=== PATIENT | male | born 1955 | race Caucasian/White ===

== ENCOUNTER → 2016-12-22 | Outpatient (CLI) | payer OTHER ==
[~2016-12-22] VITALS: Ht 177.8 cm; Wt 82.2 kg
[~2016-12-22] MED LIST: ALBUTEROL2.5 MG/0.5 INH; AMLODIPINE BESYL5 MG PO; ASPIRIN325 PO; BAYER CHEWABLE81 MG PO; DIAZEPAM 10 MG10 M1 PO; DILAUDID 4 MG TA4 M1 PO; DIOVAN40 MG PO; DIPHENHIST50 MG PO; EFFIENT10 MG PO; ESCITALOPRAM OX20 MG PO; FENTANYL PA50 MCG/HR TRANSDERM; HYDROMORPHONE HC8 MG PO; IMDUR 30 MG TAB30 M1 PO; ISOSORBIDE DINI30 MG PO; LEVOTHYROXIN0.112 M1 PO; LEXAPRO20 MG PO; LIPITOR10 MG PO; LIPITOR80 MG PO; LOPRESSOR25 PO; LOSARTAN POTAS100 MG PO; LOSARTAN POTASS25 MG PO; LYRICA100 MG PO; LYRICA200 MG PO; METHADONE HCL 110 M1 PO; METHADONE HCL5 MG PO; METHADOSE5 MG PO; NITROSTAT0.4 MG SL; NITROSTAT0.4 MG SUBLING; NORVASC 5 MG TAB5 MG PO; NORVASC5 MG PO; PRILOSEC 20 MG20 MG PO; SYNTHROID100 MCG PO; TOPROL XL25 MG PO; VYTORIN 10-201 EACH PO; dilaudid PO
--- NOTE | ~2016-12-22 | HPC ---
[facility] [address] [place] [address] PAIN MANAGEMENT CONSULTATION Name: VANIANESHA Marguerite Room #: REG CL Yanelis.#: [id number] Admission: 12/22/16 Attend Phys: Keshav Baker MD Discharge: Date of : 51 Report #: [id number] THIS REPORT FOR: //name// CC: Vincent Baker DATE OF SERVICE: 12/22/2016 Followup visit for chronic recurrent lumbar radiculopathy. The patient returns to pain clinic today for a transforaminal epidural injection. He is a responder to this therapy. He has had numerous injections over the years, nearly always providing good relief. Pain today is once again on the left side radiating down into the left buttock, hip and lower leg. He describes it as a burning, sharp sensation, worse with standing 6/10. He gets relief with these epidural injections nearly always and the duration of response has been months. PAST MEDICAL HISTORY: Detailed on the records. It is quite complex with a history of radical neck dissection, radiation for cancer, cardiac issues with cardiac arrest and multiple stents, hypertension, coronary artery disease, left knee arthroplasty, COPD with longstanding history of smoking, ____ survivor. MEDICATIONS: Methadone 10 mg 3 times daily has worked beautifully for his pain. There are no complications or side effects now and has been on the medication for over 10 years. Diphenhydramine 50 mg capsule nightly, albuterol, aspirin, amlodipine, losartan, ____, Effient, discontinued on 12/13/2016 in anticipation of injection; Lexapro, metoprolol, levothyroxine, Lyrica and nitroglycerine. PHYSICAL EXAMINATION: GENERAL: Pleasant, alert and oriented, moves easily from sitting to standing position, walks with antalgic feature. VITAL SIGNS: Blood pressure 153/76, heart rate 58. NEUROLOGIC: Straight leg raising positive. Sensation intact. IMPRESSION: Chronic low back pain on the left with radiculopathy. Pain follows in L3-L4 distribution. PROCEDURE: Left L3-L4 transforaminal epidural injection under fluoroscopic guidance. The patient was taken to fluoroscopic suite, placed prone, skin prepped with ChloraPrep, skin anesthetized over the L3-L4 neural foramen. Triplanar fluoroscopic views were used to advance the needle into the epidural space. A 1 mL of Omnipaque demonstrated an excellent epidural spread followed by 3 mL of 0.5% lidocaine mixed with 80 mg of triamcinolone. He tolerated the procedure [address] [address] PAIN MANAGEMENT CONSULTATION Name: NESHA CARO Room #: REG [facility].#: [id number] Admission: 12/22/16 Attend Phys: Keshav Baker MD Discharge: Date of : 51 Report #: [id number] well and was observed for 45 minutes and discharged. Followup visit planned as needed. By: [id number] MD espinoza Vela
[2016-12-22 12:56] VITALS: BP 153/76
== END | disposition home or self-care (01) ==
LOC: PAIN 07:08
DX: M54.16 Radiculopathy, lumbar region (principal); Z85.9 Personal history of malignant neoplasm, unspecified; I10 Essential (primary) hypertension; I25.10 Atherosclerotic heart disease of native coronary artery without angina pectoris; J44.9 Chronic obstructive pulmonary disease, unspecified; Z87.891 Personal history of nicotine dependence

== ENCOUNTER → 2017-01-05 | Outpatient (CLI) | payer OTHER ==
[~2017-01-05] VITALS: Ht 177.8 cm; Wt 81.9 kg
--- NOTE | ~2017-01-05 | HPC ---
[facility] [address]ie [address] [place] [address] PAIN MANAGEMENT CONSULTATION Name: NESHA CARO Marguerite Room #: REG [facility] [place]#: [id number] Admission: 01/05/17 Attend Phys: Keshav Baker MD Discharge: Date of : 51 Report #: [id number] THIS REPORT FOR: //name// CC: SERGE Baker DATE OF SERVICE: 01/05/2017 Followup visit for lumbar radiculopathy. The patient returns to pain clinic today for a second epidural injection. His first one of transforaminal on the left was helpful for about 4 days and the pain came back with a . He says it feels just like it does when I inject him along that transforaminal nerve root. He was really good at first, but now the pain seems to have increased to the point where he is unable to get pain relief even with an additional dose of methadone. He is here today hopeful that we can provide relief with a second injection. I have decided that we will not try and go into the neural foramina again this time and we will use midline approach at L3-L4. Reviewed the x-rays again, MRI and I feel that will be the best place to initiate the injection. PHYSICAL EXAMINATION: Walking with antalgic features. Blood pressure is 133/70, heart rate 60, respirations 16. BMI is 25.9. He has positive straight leg raising on the left following the L3 L4 distribution. IMPRESSION: Lumbar radiculopathy. PROCEDURE: Lumbar epidural injection at L3-L4 under fluoroscopic guidance. PROCEDURE NOTE: He was taken to fluoroscopic suite, placed prone, skin prepped with ChloraPrep, skin anesthetized over the L3-L4 midline lamina. A 20-gauge Tuohy epidural needle advanced in the epidural space in first attempt with loss of resistance. No blood, no CSF aspirated. 1 mL of Omnipaque was injected with spread of dye observed into the epidural space. This was then followed by 3 mL of 0.5% lidocaine mixed with 80 mg of triamcinolone. He tolerated the procedure well and was observed for 45 minutes and discharged. Followup visit planned in the pain clinic in 2-3 months. I renewed medication at his last visit, he does not need medication at this time. We are hopeful to see some improvement with this injection, so that he can get back to baseline. By: [id number] Keshav Baker MD /nt
[2017-01-05 09:19] VITALS: BP 133/70
== END | disposition home or self-care (01) ==
LOC: PAIN 06:39
DX: M54.16 Radiculopathy, lumbar region (principal)

== ENCOUNTER → 2017-04-28 | Outpatient (CLI) | payer OTHER | LOC: CAT 08:47 | PROVIDERS: Otolaryngology Plastic Surgery within the Head & Neck | DX: J34.3 Hypertrophy of nasal turbinates (principal); J02.9 Acute pharyngitis, unspecified; J34.2 Deviated nasal septum; R09.82 Postnasal drip; R13.10 Dysphagia, unspecified; R09.89 Other specified symptoms and signs involving the circulatory and respiratory systems ==

== ENCOUNTER → 2017-06-05 | Outpatient (CLI) | payer OTHER ==
[~2017-06-05] VITALS: Ht 180.3 cm; Wt 85.7 kg
[~2017-06-05] MED LIST changes: +HYDROCODON-ACE1 EAC5 PO; +REPATHA SY140 MG/1 M SUBQ
--- NOTE | ~2017-06-05 | HPC ---
[facility] [address] [place] [address] PAIN MANAGEMENT CONSULTATION Name: NESHA CARO Marguerite Room #: REG CALLY Marquez#: [id number] Admission: 06/05/17 Attend Phys: Keshav Baker MD Discharge: Date of : 51 Report #: [id number] THIS REPORT FOR: //name// CC: Betito Baker DATE OF SERVICE: 06/05/2017 Follow up visit for lumbar radiculopathy. The patient is here today for an epidural injection. He has responded nicely to epidural injections in the past and pain is recurring. Number of issues with his back dating back to his teenage years when he rode yarelis. He has had multiple spinal surgeries as well as other surgeries for his heart and for squamous cell cancer of the throat and tonsils. Today, he reports that his pain in his back and his legs, is most bothersome at 5/10, mostly in the left buttock, it radiates down the left leg with occasional right-sided pain. Pain radiates into the left big toe following an L5-S1 distribution. He describes it as burning, sharp and stabbing, worse with walking and prolonged sitting. If he lays down, he gets relief and he also benefits from medications that are now provided to him by Dr. Betito Veronica. He has no breakthrough medication in the past, he used hydromorphone. I have agreed to provide him with a trial of hydrocodone for breakthrough medication I have noted on the prescription that he is in an agreement with Dr. Veronica. This dictation will serve as a notification to Dr. Veronica that as a pain practice, we suggested a trial of breakthrough medication. PHYSICAL EXAMINATION: He is outgoing as usual. His blood pressure is 132/75, heart rate 62, respirations 16, and BMI is 26.5. He ambulates with antalgic features. His spine is stiff with forward flexion and extension. He has minimal pain with leg extension on the right, but it is positive on the left following a radicular pattern through the lateral aspect of the leg and into the hip. IMPRESSION: Lumbar radiculopathy. RECOMMENDATIONS: Epidural steroid injection under fluoroscopic guidance. We reviewed his previous injections, and he has always gotten best relief when we inject him just below a large osteophytic spur noted at L2-L3. PROCEDURE: L3-L4 epidural steroid injection under fluoroscopic guidance. PROCEDURE NOTE: He was taken to the fluoroscopic suite, placed prone, skin prepped with ChloraPrep, skin anesthetized over the L3-L4 interspace. A [address] [address] PAIN MANAGEMENT CONSULTATION Name: NESHA CARO Room #: REG [facility] Al[place]#: [id number] Admission: 06/05/17 Attend Phys: Keshav Baker MD Discharge: Date of : 51 Report #: [id number] 20-gauge Tuohy epidural needle advanced in the epidural space with loss of resistance technique. There was no blood or CSF aspirated. 1 mL of Omnipaque was injected. Good spread of dye observed in the epidural space followed by 3 mL of 0.5% lidocaine mixed with 80 mg of triamcinolone. He tolerated the procedure well and was observed for 45 minutes and discharged. Followup visit planned in the pain clinic as needed. <ELECTRONICALLY SIGNED> By: Keshav Baker MD 06/07/17 1551 1651 1095 Keshav Baker MD /nt
[2017-06-05 10:49] VITALS: BP 132/75
== END | disposition home or self-care (01) ==
LOC: PAIN 05-22 08:20
DX: M54.16 Radiculopathy, lumbar region (principal); F17.200 Nicotine dependence, unspecified, uncomplicated

== ENCOUNTER → 2017-09-18 | Outpatient (CLI) | payer OTHER ==
[~2017-09-18] VITALS: Ht 180.3 cm; Wt 84.1 kg
--- NOTE | ~2017-09-18 | HPC ---
[facility] [address] [place] [address] PAIN MANAGEMENT CONSULTATION Name: NESHA CARO Room #: REG CALLY [facility].#: [id number] Admission: 09/18/17 Attend Phys: Keshav Baker MD Discharge: Date of : 51 Report #: [id number] THIS REPORT FOR: //name// CC: Betito Baker DATE OF SERVICE: 09/18/2017 Followup visit for lumbar radiculopathy. The patient returns today for an epidural injection, has done well with these injections. He has an upcoming trip planned to [place] and would like to get an injection before he leaves. He scores his daily pain as a 6/10, worse with standing and walking. Pain is mostly in his right buttock and radiates down into the right leg. He has responded very nicely to previous injections performed to the right of midline. All medications are provided to him under terms of an agreement signed and administered by Dr. Veronica. PQRS assessment shows that he has no history currently of osteoarthritis other than pain in the right hip. This was evaluated later in the visit. An x-ray was ordered. His BMI is 25.9. His O2 sat is 97, blood pressure 132/82, heart rate 62. Pain intensity is a 6/10 today in the right leg. He is not on a blood thinner, does have a history of hypertension and followed by Dr. Veronica for opioid issues. PHYSICAL EXAMINATION: Pleasant, alert and oriented, walks with antalgic features. He has pain in his right hip. Locally tender in the gluteus muscles. He also has pain in the groin with external rotation of the hip. Internal rotation is also performed with discomfort radiating into the anterolateral thigh. It does not go below the knee. There is some mild tenderness along the scar tissue in his groin from multiple vascular procedures. Sensation is normal below the knee. No focal weakness is noted. IMPRESSION: 1. Low back pain with radiculopathy on the right following an L5-S1 distribution. 2. History of squamous cell carcinoma. 3. Possible osteoarthritis of right hip, in the midst of workup. PROCEDURE: Lumbar epidural injection under fluoroscopic guidance. DESCRIPTION OF PROCEDURE: He was taken to fluoroscopic suite, placed prone, [address] [address] PAIN MANAGEMENT CONSULTATION Name: VANIANESHA Room #: REG CALLY Marquez#: [id number] Admission: 09/18/17 Attend Phys: Keshav Baker MD Discharge: Date of : 51 Report #: [id number] skin prepped with ChloraPrep. Skin was anesthetized over the L3-L4 interspace. A 20-gauge Tuohy epidural needle advanced in the epidural space to the right of midline. No blood or CSF was aspirated. 1 mL of Omnipaque was injected. Good spread of dye was observed followed by 3 mL of 0.5% lidocaine mixed with 80 mg of triamcinolone. He tolerated the procedure well and was observed for 45 minutes and discharged. Followup visit on an as needed basis. <ELECTRONICALLY SIGNED> By: Keshav Baker MD 09/20/17 1640 1430 1445 Keshav Baker MD /nt
[2017-09-18 10:16] VITALS: BP 132/82
== END ==
LOC: PAIN 07:36
DX: M54.16 Radiculopathy, lumbar region (principal); C44.92 Squamous cell carcinoma of skin, unspecified

== ENCOUNTER → 2018-05-21 | Outpatient (CLI) | payer OTHER ==
[~2018-05-21] VITALS: Ht 180.3 cm; Wt 83.3 kg
--- NOTE | ~2018-05-21 | HPC ---
[facility] [address] [place] [address] PAIN MANAGEMENT CONSULTATION Name: NESHA CARO Room #: REG [facility] [place]#: [id number] Admission: 05/21/18 Attend Phys: Keshav Baker MD Discharge: Date of : 51 Report #: [id number] THIS REPORT FOR: //name// CC: Vincent Baker DATE OF SERVICE: 05/21/2018 Followup visit for chronic low back pain, lumbar radiculopathy. The patient returns to pain clinic today reporting 8 months of pain relief following his last epidural injection. He said the shot was amazing, it was one of the best periods of relief he has had from a single injection. I reviewed his x-ray films from that injection. Similar disposition of medications in the past, although we have made note of the location intended to inject him once again at the level of L2-L3. This is just below large disk osteophyte complex easily seen on the plain film x-ray. Disk space is fairly well maintained, but it is obvious in the area of injury where he has had evidence of neural encroachment. Pain tends to be more to the right where the disk osteophyte complex is on the left. He remains on medication, hydrocodone 10/325. I provided this for him under terms of an agreement. He does not use it frequently, uses it primarily for breakthrough. Also, has taken methadone 10 mg 3 times a day. Medication is now provided by Dr. Veronica under terms of that written agreement. PQRS: Review shows that he has no history of current osteoarthritis other than some pain in his right hip. BMI is 25.4, blood pressure 136/80, heart rate is 68. He scores his pain as a 7 today. Most of his pain is in the right leg once again. Denies use of blood thinner. Dr. Veronica provides medications for him for chronic pain and for hypertension. IMPRESSION: 1. Chronic low back pain with radiculopathy on the right. Last injection was performed at L2-L3. Distribution of his pain tends to be a bit more at lower following an L5-S1 distribution. 2. Squamous cell carcinoma status post total neck dissection several years ago. No active disease. PROCEDURE: Lumbar epidural injection at L2-L3 under fluoroscopic guidance. DESCRIPTION OF PROCEDURE: He was taken to the fluoroscopic suite, placed prone, skin prepped with ChloraPrep. Skin anesthetized over L2-L3 interspace. A 20-gauge Tuohy epidural needle advanced first attempt into the epidural space with loss of resistance technique. There was no blood or CSF aspirated. 1 mL of Isovue injected. Good spread of dye observed in the epidural space followed [address] [address] PAIN MANAGEMENT CONSULTATION Name: NESHA CARO Room #: REG CALLY Marquez#: [id number] Admission: 05/21/18 Attend Phys: Keshav Baker MD Discharge: Date of : 51 Report #: [id number] by 2 mL of 0.5% lidocaine mixed with 80 mg of triamcinolone. He tolerated the procedure well and was observed for 45 minutes and discharged. Follow up as needed. By: [id number] Keshav Baker MD /nt
[2018-05-21 10:00] VITALS: BP 157/82
== END | disposition home or self-care (01) ==
LOC: PAIN 08:13
DX: M54.16 Radiculopathy, lumbar region (principal); G89.29 Other chronic pain; F17.210 Nicotine dependence, cigarettes, uncomplicated; Z98.890 Other specified postprocedural states; Z85.828 Personal history of other malignant neoplasm of skin; Z79.891 Long term (current) use of opiate analgesic; Z91.040 Latex allergy status; Z79.82 Long term (current) use of aspirin; Z79.899 Other long term (current) drug therapy; Z88.8 Allergy status to other drugs, medicaments and biological substances

== ENCOUNTER → 2019-10-30 | Outpatient (CLI) | payer OTHER | LOC: SJCVCIMAG 07:49 | DX: R94.31 Abnormal electrocardiogram [ECG] [EKG] (principal); I25.10 Atherosclerotic heart disease of native coronary artery without angina pectoris; I10 Essential (primary) hypertension; E78.00 Pure hypercholesterolemia, unspecified; I65.23 Occlusion and stenosis of bilateral carotid arteries; I73.9 Peripheral vascular disease, unspecified; I25.5 Ischemic cardiomyopathy; J44.9 Chronic obstructive pulmonary disease, unspecified; I25.2 Old myocardial infarction; F17.200 Nicotine dependence, unspecified, uncomplicated ==

== ENCOUNTER 2019-11-08 11:00 | Inpatient (IN) | payer OTHER ==
[~2019-11-08] VITALS: Ht 177.8 cm; Wt 72.1 kg
[2019-11-08 11:10] VITALS: BP 115/70
[2019-11-08 11:33] LABS: ABSOLUTE NEUTROPHILS 11.5 thou/uL (1.4-8.2); BASOPHILS 0.6 % (0.0-2.0); EOSINOPHILS 0.1 % (0.0-3.0); HEMATOCRIT 38.6 % (42.0-52.0); HEMOGLOBIN 12.7 gm/dL (14.0-18.0); MCH 28.1 pg (26.0-34.0); MCV 85.1 fL (80.0-100.0); MONOCYTES 7.1 % (1.0-8.0); PLATELET COUNT 278 thou/uL (150-400); POLYS 78.2 % (36.0-66.0); RBC 4.53 mil/uL (4.50-6.00); RDW 15.1 % (10.5-14.5); WBC 14.7 thou/uL (4.0-11.0)
[2019-11-08 11:43] LABS: CALCIUM 9.1 mg/dL (8.5-10.1)
--- NOTE | 2019-11-08 12:34 | NUR ---
PT ATTEMPTINT TO URINATE AT BEDSIDE AT THIS TIME
--- NOTE | 2019-11-08 13:36 | NUR ---
PT's phone number: [phone]
[2019-11-08] MEDS ORDERED: REPATHA SY140 MG/1 M SUBQ (13:44)
[2019-11-08 13:46] VITALS: BP 115/70
[2019-11-08] MEDS ORDERED: PLAVIX 75 MG TA75 MG PO (13:48)
--- NOTE | 2019-11-08 13:55 | NUR ---
Report called to Liliana Mota RN at this time.
[2019-11-08 14:09] VITALS: BP 88/41
--- NOTE | 2019-11-08 15:46 | NUR ---
PATIENT ADDMITTED FROM ER AT 1425 TO ROOM 356. PT ALERT XS 4 STATES NO PAIN NO RESP DISTRESS O2 SAT = 90 % RA. PT ADMITTED WITH FEVER COUGH SOA. R/O COVID19. LUNGS DIM HAS OCASS NON PROD COUGH BS'S XS4 STATES BM XS2 DAYS NORMAL FOR HIM. SKIN PINK WARM AND DRY NO OPEN AREAS HAS SCARS FROM RIDING BULLS WHEN YOUNGER ALSO HAS SURGERIES TO PLACE HEART STENTS, TELE MONITOR ATTACHED PRINTED SHEET AND PLACED IN CHART. IV FLUIDS AND IV ABTS INFUSING ORDERED. PT IS PLEASANT AND COOPERATIVE WITH CARE.
--- NOTE | 2019-11-08 18:11 | NUR ---
UA OBTAINED AND TAKEN TO LAB. PT CAME FROM ER WITH ORDER.
[2019-11-08 18:43] LABS: URINE BILIRUBIN NEGATIVE (Negative); URINE BLOOD NEGATIVE (Negative); URINE CLARITY CLEAR; URINE COLOR AMBER; URINE GLUCOSE-RANDOM* NEGATIVE (Negative); URINE KETONES NEGATIVE (Negative); URINE LEUKOCYTES-REFLEX NEGATIVE (Negative); URINE NITRITE-REFLEX NEGATIVE (Negative); URINE PROTEIN (DIPSTICK) NEGATIVE (Negative)
--- NOTE | 2019-11-08 18:43 | NUR ---
PT RESTING IN BED WATCHING TV NO PAIN OR RESP DISTRESS, NO COUGH. PT AMBULATES TO BATHROOM WITH NO ASSITIVE DEVICES AND STEADY GAIT, UA OBTAINED AND TAKEN TO LAB. PT PLEASANT AND COOPERATIVE WITH CARE.
[2019-11-08 20:50] VITALS: BP 121/69
[2019-11-09 04:36] VITALS: BP 115/58
--- NOTE | 2019-11-09 05:16 | NUR ---
ASSUMED CARE OF PATIENT AT 1900. PATIENT ON ENHANCED PRECAUTIONS WHILE AWAITING COVID TESTING RESULTS. AT HANDOFF IT WAS REPORTED THAT PATIENT WAS REQUESTING BENADRYL. AN ORDER FOR BENADRYL WAS RECEIVED TO BE ADMINISTERED AT HS. PATIENT STATES THAT HE TAKES BENADRYL AT HOME FOR POST NASAL DRIP AND NOT A SLEEP AID. THROUGHOUT NIGHT PATIENT HEART RATE WAS MONITORED IN THE UPPER 50s TO LOW 60s. PATIENT HAD RECEIVED DILAUDID AND METHADONE ORDERED AT HS FOR CHRONIC PAIN. PATIENT ON ROOM AIR. OXYGEN SATURATION MAINTAINED BETWEEN 90-92% WITH SLIGHT DESATURATION TO 88-89% WITH ACTIVITY OR TALKING.
[2019-11-09 06:14] LABS: ABSOLUTE NEUTROPHILS 5.9 thou/uL (1.4-8.2); BASOPHILS 0.5 % (0.0-2.0); EOSINOPHILS 1.4 % (0.0-3.0); HEMATOCRIT 34.9 % (42.0-52.0); HEMOGLOBIN 11.5 gm/dL (14.0-18.0); LYMPHOCYTES 26.7 % (24.0-44.0); MCH 28.1 pg (26.0-34.0); MCHC 32.9 g/dL (28.0-37.0); MCV 85.4 fL (80.0-100.0); MONOCYTES 8.6 % (1.0-8.0); PLATELET COUNT 266 thou/uL (150-400); POLYS 62.8 % (36.0-66.0); RBC 4.09 mil/uL (4.50-6.00); RDW 15.1 % (10.5-14.5); WBC 9.4 thou/uL (4.0-11.0)
[2019-11-09 06:32] LABS: CALCIUM 8.9 mg/dL (8.5-10.1); CREATININE 0.8 mg/dL (0.7-1.3); MAGNESIUM 1.9 mg/dL (1.8-2.4); POTASSIUM 3.8 mmol/L (3.5-5.1)
[2019-11-09 09:00] VITALS: BP 140/71
--- NOTE | 2019-11-09 11:55 | NUR ---
PT ASSESSED AT START OF SHIFT. STATES HE HAS CHRONIC COUGH AT HOME FROM HAVING HAD RADICAL NECK SURGERY IN 1996. HAD FEVERS FOR 3 DAYS AND CAME TO ER PER DR. JACQUES TANNER. HAS BEEN AFEBRILE. DOES HAVE SOME MILD SHORTNESS OF BREATH W/ TALKING AND O2 SAT WAS CHECKED AT 89% ON RA. PT COUGHED WELL AND SAT INCREASED IMMEDIATELY TO 97%. HE WAS ALSO EATING WELL TALKING W/ NURSE.
[2019-11-09 12:30] VITALS: BP 120/64
[2019-11-09] MEDS ORDERED: LEVAQUIN 750 M750 MG PO (12:44)
[2019-11-09 14:37] VITALS: BP 140/71
--- NOTE | 2019-11-09 15:35 | NUR ---
DR. GARNER IN TO SEE PT AT LUNCHTIME AND DICHARGED PT HOME W/ ORAL ANTIBIOTICS. HE INSTRUCTED PT THAT HOSPITAL WOULD INFORM HIM W/ COVID RESULTS ONCE OBTAINED. PT TO QUARENTINE HIMSELF FOR 14 DAYS UNLESS TEST NEGATIVE. PT STATED HE UNDERSTOOD AND AGREED. NO FURTHER FEVERS. PT DISCHARGED AT 1515 PER W/C W/ ALL BELONGINGS.
== END 2019-11-09 15:15 | disposition home or self-care (01) | DRG 178 ==
LOC: ER 11:00 → EROBS 13:51 → 3W 14:14
PROVIDERS: Emergency Medicine; Nurse Practitioner; ADMIT Hospitalist
DX: J69.0 Pneumonitis due to inhalation of food and vomit (principal); J44.0 Chronic obstructive pulmonary disease with (acute) lower respiratory infection; E03.9 Hypothyroidism, unspecified; I10 Essential (primary) hypertension; E78.5 Hyperlipidemia, unspecified; M19.90 Unspecified osteoarthritis, unspecified site; F32.9 Major depressive disorder, single episode, unspecified; I25.10 Atherosclerotic heart disease of native coronary artery without angina pectoris; K44.9 Diaphragmatic hernia without obstruction or gangrene; K21.9 Gastro-esophageal reflux disease without esophagitis; I25.5 Ischemic cardiomyopathy; J44.9 Chronic obstructive pulmonary disease, unspecified; M54.9 Dorsalgia, unspecified; G89.29 Other chronic pain; F17.210 Nicotine dependence, cigarettes, uncomplicated; J20.9 Acute bronchitis, unspecified; Z20.828 Contact with and (suspected) exposure to other viral communicable diseases; Z95.5 Presence of coronary angioplasty implant and graft; Z79.82 Long term (current) use of aspirin; Z79.899 Other long term (current) drug therapy; Z91.040 Latex allergy status
CPT/HCPCS: 10879

== ENCOUNTER → 2020-03-12 | Outpatient (CLI) | payer OTHER ==
[~2020-03-12] VITALS: Ht 177.8 cm; Wt 72.1 kg
[~2020-03-12] MED LIST changes: +LEVAQUIN 750 M750 MG PO; +PLAVIX 75 MG TA75 MG PO
[2020-03-12 08:49] VITALS: BP 133/78
[2020-03-12 09:07] LABS: ABSOLUTE NEUTROPHILS 7.3 thou/uL (1.4-8.2); BASOPHILS 0.8 % (0.0-2.0); EOSINOPHILS 1.2 % (0.0-3.0); HEMATOCRIT 41.4 % (42.0-52.0); HEMOGLOBIN 13.9 gm/dL (14.0-18.0); MCH 29.5 pg (26.0-34.0); MCHC 33.7 g/dL (28.0-37.0); MCV 87.6 fL (80.0-100.0); MONOCYTES 6.2 % (1.0-8.0); PLATELET COUNT 387 thou/uL (150-400); POLYS 69.8 % (36.0-66.0); RBC 4.73 mil/uL (4.50-6.00); RDW 13.6 % (10.5-14.5); WBC 10.5 thou/uL (4.0-11.0)
[2020-03-12 09:28] LABS: CREATININE 0.9 mg/dL (0.7-1.3); POTASSIUM 4.1 mmol/L (3.5-5.1)
--- NOTE | 2020-03-13 08:02 | EKG ---
[facility] [place] [place] [address] ELECTROCARDIOGRAM REPORT Name: NESHA CARO Room #: REG [facility]#: [id number] Admission: 03/12/20 Attend Phys: Elver Mcintyre MD, Discharge: Date of : 51 Report #: [id number] THIS REPORT FOR: cc: Vincent Veronica MD, Christopher B. MD Lundgren,Dmitry Gonsalez MD [facility] ~ THIS REPORT FOR: //name// [facility] [place] Test Date: 2020-03-12 Test Time: 08:51:54 Pat Name: NESHA CARO Department: Room: Gender: M Certified Activities Director: SHERIF : 1955 Requested By: Elver Mcintyre Order Number: [id number] MD: Dmitry Rocha Measurements Intervals [place] Rate: 49 P: 72 SD: 171 QRS: -14 QRSD: 96 T: 14 QT: 463 QTc: 418 Interpretive Statements Sinus bradycardia Poor R wave progression Compared to ECG 03/06/2014 07:45:06 T-wave abnormality no longer present Electronically Signed On 03-13-2020 8:02:00 CDT by Dmitry Rocha [email or web address] <ELECTRONICALLY SIGNED> By: Dmitry Rocha MD, [facility] 03/13/20 08 0 0 Dmitry Rocha MD, [facility] /EPI
--- NOTE | 2020-03-13 15:55 | CATHLAB ---
[facility] [address]ie [place] [address] INVASIVE PROCEDURE REPORT Name: NESHA CARO Room #: REG [facility] Yanelis.#: [id number] Admission: 03/12/20 Attend Phys: Elver Mcintyre MD, Discharge: Date of : 51 Report #: [id number] THIS REPORT FOR: cc: Vincent Veronica MD, Christopher B. MD Mancuso, Gerald M. MD [facility] ~ APPROVED REPORT Study performed: 03/12/2020 08:47:23 Patient Details Patient Status: Out-Patient Room #: The patient is a 64 year-old male Event Personnel Elver Mcintyre Jailer Chief, Sunita Alatorre RN RN, Karma Matos Scrludwig, Brandi Martínez RTR Scrub, Chaparrita Gambino RTR Monitor Procedures Performed Art Access - R femoral artery* Left Heart Cath w/or w/o Coronaries [id number] [facility] [address] Initial Mod Sed Same Phys/QHP Gr 823588 62247 Mod Sed Same Phys/QHP Ea 023924 Aortogram Abdominal Peripheral Angio 144016 Hemostasis w/ Mynx Indication Chest pain Procedure Narrative The Right Groin^ was infiltrated with 1% Lidocaine subcutaneous anesthesia. A PINNACLE 6FR Sheath #[id number] sheath was inserted into the RFA^. Coronary angiography was performed using coronary diagnostic catheters. The right coronary system was accessed and visualized with a JR4 catheter. The left coronary system was accessed and visualized with a JL4 catheter. The left ventricle was accessed and visualized with a PIGTAIL catheter. Left ventriculogram was performed in 30 degree projection. An aortogram of the abdominal aorta was performed. Pre-demployment femoral angiogram was performed . Closure device was deployed with a 6 Fr MYNXGRIP 6/7F #[id number]. The patient tolerated the procedure well and there were no complications associated with the procedure. There was no hematoma. Intraoperative Conscious Sedation Sedation start time: 940 Case end Time: 1005 [facility] [address] [place] [address] INVASIVE PROCEDURE REPORT Name: NESHA CRAO Room #: [facility]#: [id number] Admission: 03/12/20 Attend Phys: Elver Mcintyre, Discharge: Date of : 51 Report #: [id number] Fentanyl 100 mcg Versed 2 mg Fluoro Time: 1.30 minutes Dose: DAP 5918.00 cGycm2 751 mGy Contrast Type and Amount: Visipaque 125 ml Hemodynamics The aortic pressure is 135/65 mmHg with a mean of 92 mmHg. The left ventricular pressure is 148/1 mmHg with a mean of mmHg. The left ventricular end diastolic pressure is 28 mmHg. Conclusion 1. Normal left ventricular size and inferior basilar akinesis EF 45 to 50% #2 abdominal aortogram revealing a small infrarenal aortic aneurysm mild aortic ectasia. Brisk flow will evaluate noninvasively. #3 left main moderate calcification giving rise to LAD and circumflex. #4 LAD with multiple prior proximal and mid vessel stents moderate in-stent restenosis and calcification is noted no high-grade occlusive disease this LAD extends around the apex. Diagonal system also moderately diseased. #5 circumflex OM with a first proximal OM mild in-stent restenosis 3 distal OM branch is widely patent. There is a left to right collateralization of the PDA off of an occluded RCA. Proximal circumflex lesion approaching 50% #6 dominant right proximally occluded multiple prior stents placed. Both proximal and distal the PDA is filled via the left system. Recommendations and plan: Continue aggressive risk factor modification. Minimal progression here since a prior catheterization of 2018. Continue aggressive medical therapy <ELECTRONICALLY SIGNED> By: Elver Mcintyre MD, [facility] 03/13/20 1555 1555 1555 Elver Mcintyre MD, FACC /INF
== END ==
LOC: CATH 07:54
PROVIDERS: ATTEND Internal Medicine Cardiovascular Disease
DX: R07.9 Chest pain, unspecified (principal); M19.90 Unspecified osteoarthritis, unspecified site; I25.10 Atherosclerotic heart disease of native coronary artery without angina pectoris; F32.9 Major depressive disorder, single episode, unspecified; I10 Essential (primary) hypertension; E78.5 Hyperlipidemia, unspecified; E03.9 Hypothyroidism, unspecified; K21.9 Gastro-esophageal reflux disease without esophagitis; I25.2 Old myocardial infarction; J44.9 Chronic obstructive pulmonary disease, unspecified; Z86.73 Personal history of transient ischemic attack (TIA), and cerebral infarction without residual deficits; Z87.891 Personal history of nicotine dependence; Z79.899 Other long term (current) drug therapy; Z98.890 Other specified postprocedural states

== ENCOUNTER → 2020-07-31 | Outpatient (CLI) | payer OTHER | LOC: SJCVCIMAG 09:37 | PROVIDERS: ATTEND Internal Medicine Cardiovascular Disease | DX: I65.23 Occlusion and stenosis of bilateral carotid arteries (principal); I77.811 Abdominal aortic ectasia; I25.118 Atherosclerotic heart disease of native coronary artery with other forms of angina pectoris; I10 Essential (primary) hypertension; E78.00 Pure hypercholesterolemia, unspecified; J44.9 Chronic obstructive pulmonary disease, unspecified; G89.29 Other chronic pain; I42.9 Cardiomyopathy, unspecified; F17.210 Nicotine dependence, cigarettes, uncomplicated; Z79.82 Long term (current) use of aspirin; Z79.899 Other long term (current) drug therapy ==

== ENCOUNTER → 2021-02-16 | Outpatient (CLI) | payer OTHER, MEDICARE | LOC: SJCVC 14:50 | PROVIDERS: ATTEND Internal Medicine Cardiovascular Disease | DX: I25.118 Atherosclerotic heart disease of native coronary artery with other forms of angina pectoris (principal); I10 Essential (primary) hypertension; I65.23 Occlusion and stenosis of bilateral carotid arteries; E78.00 Pure hypercholesterolemia, unspecified; J44.9 Chronic obstructive pulmonary disease, unspecified; I25.5 Ischemic cardiomyopathy; F17.210 Nicotine dependence, cigarettes, uncomplicated; Z79.82 Long term (current) use of aspirin; Z79.899 Other long term (current) drug therapy; Z72.89 Other problems related to lifestyle; Z88.8 Allergy status to other drugs, medicaments and biological substances ==